=== PATIENT | male | born 1960 | race Caucasian/White ===

== ENCOUNTER 2017-09-03 14:40 | Emergency (ER) | payer SELFPAY ==
--- NOTE | 2017-09-03 14:55 | ED ---
Laceration/Wound HPI - HPI Summary HPI Summary: 57 male presents to ED with complaints of a laceration to right cheek after using a chainsaw that bounced up and caught him in the face while at work just [employer]. Patient denies any changes to vision, trauma to eye or trouble breathing. No other complaints or lacerations elsewhere. Has full range of motion of cheek and face. States the laceration area it self feels somewhat numb. Last tetanus unknown. Is currently in minimal pain. No head trauma, feeling lightheaded or dizzy. No PMHx. No medications. No blood thinners. Was cutting wood however does not think any got into his cheek. Bleeding well controlled at this time. - History of Current Complaint Stated Complaint: LAC Time Seen by Provider: 09/03/17 14:48 Hx Obtained From: Patient Mechanism of Injury: Sharp/Blunt Trauma - chainsaw Onset/Duration: Sudden Onset Aggravating: Movement Alleviating: Compression Timing: Constant Current Severity: None Pain Intensity: 0 Pain Scale Used: 0-10 Numeric PMH/Surg Hx/FS Hx/Imm Hx Infectious Disease History: No Infectious Disease History: Denies: Traveled Outside the [place] in Last 30 Days Review of Systems Constitutional: Negative Cardiovascular: Negative Respiratory: Negative Musculoskeletal: Negative Positive: Other - laceration Neurological: Negative All Other Systems Reviewed And Are Negative: Yes Physical Exam Triage Information Reviewed: Yes Vital Signs On Initial Exam: Initial Vitals Temp Pulse Resp BP Pulse Ox 97 F 92 16 201/137 98 09/03/17 14:42 09/03/17 14:42 09/03/17 14:42 09/03/17 14:42 09/03/17 14:42 elevated bp noted, 157/99, improved at discharge Vital Signs Reviewed: Yes Appearance: Positive: Well-Appearing, No Pain Distress, Well-Nourished Skin: Positive: Warm, Skin Color Reflects Adequate Perfusion, Dry, Other - ~7cm linear however jagged laceration of SQ to right cheek noted, no obvious foreign body or bony involvement noted rest of skin exam normal. some skin missing.. Negative: Cold, Cyanosis @, Pale, Erythema @ Head/Face: Positive: Normal Head/Face Inspection - other than noted above laceration, Other - normal sensation and movement of face, appears facial nerve C7 is intake. Negative: Scalp Eyes: Positive: Normal, EOMI, ROLA, Conjunctiva Clear ENT: Positive: Normal ENT inspection, Hearing grossly normal, Pharynx normal, TMs normal Neck: Positive: Supple, Nontender Respiratory/Lung Sounds: Positive: Clear to Auscultation, Breath Sounds Present. Negative: Rales, Rhonchi, Wheezes Cardiovascular: Positive: Normal, RRR, Pulses are Symmetrical in both Upper and Lower Extremities. Negative: Murmur, Rub Musculoskeletal: Positive: Normal, Strength/ROM Intact Neurological: Positive: Normal, Sensory/Motor Intact, Alert, Oriented to Person Place, Time, NV Bundle Intact Distally Procedures - Laceration/Wound Repair 1 Location: face Description: Linear - jagged Anesthesia: Local, 1.0%, Lido Length, Depth and Shape: ~7cm linear/jagged laceration SQ to right cheek Betadine Prep?: Yes Irrigated w/ Saline (ccs): 500 Laceration/Wound Explored: clean, no foreign body removed Closure: Single Layer Suture Type: Nylon - 6-0 Number of Sutures: 12 Sterile Dressing Applied?: Yes Diagnostics - Vital Signs Vital Signs Temp Pulse Resp BP Pulse Ox 09/03/17 14:42 97 F 92 16 201/137 98 - Laboratory Lab Statement: Any lab studies that have been ordered have been reviewed, and results considered in the medical decision making process. - CT maxillofacial CT Interpretation: No Acute Changes, Positive (See Comments) - 1. Evidence of laceration overlying the right zygoma without underlying fracture or dislocation. 2. Very mild paranasal sinus mucosal disease involving the bilateral maxillary sinuses. CT Interpretation Completed By: Radiologist - and myself Laceration Repair Course/Dx - Course Course Of Treatment: sensation and motor appears to be intact on physical exam. maxillofacial CT obtained and negative for fracture and FB. laceration was thoroughly irrigated and sutured without complication. patient tolerated procedure well. sterile technique was used. patient comfortable throughout stay and was not in any pain, no meds given. tetanus was updated. keep clean and dry. triple antibiotic ointment. follow up pcp. removed in 5--7 days, aware of worsening signs and symptoms to watch out for. no other concerns at this time. educated on worsening symptoms such as infection. - Differential Dx Differental Diagnoses: Avulsion, Laceration - Clinical Impression Provider Diagnoses: Laceration of right cheek without complication Discharge - Discharge Plan Condition: Stable Disposition: HOME Patient Education Materials: Care For Your Stitches (ED), Laceration (ED) Referrals: Abhay Aaron MD [Primary Care Provider] - Additional Instructions: Keep wound clean and dry. Do not get it wet for 24 hours. Keep covered. Apply triple antibiotic ointment. Have sutures removed in 5-7 days. Watch for signs of infection. Ibuprofen for pain and inflammation. You may apply cool compresses to soothe pain and for swelling, however avoid leaking and soaking area, as discussed. Any new or worsening symptoms, such as infection, loss of motor skills/sensation , please seek medical attention promptly. Follow up with PCP.
[2017-09-03] MEDS ORDERED: Lidocaine 2% 10 ML* VIAL INJ ONE (15:29)
[2017-09-03] MEDS ORDERED: Lidocaine 1%* 5 ML VIAL INJ ONE (15:43)
[2017-09-03] MEDS ORDERED: Lidocaine 1% INJ* 10 MG/ML 30 ML SDV ONE (15:43)
[2017-09-03] MEDS ORDERED: Tetan/Diph/Pertus SYR(Tdap)* 0.5 ML SYR(BOOSTRIX) use SYR IM ONE (16:07)
--- NOTE | 2017-09-03 16:18 | RAD ---
indication: Laceration to right cheek after chainsaw "kicked in back intO face" COMPARISON: None A CT scan of the maxillofacial bones was performed without intravenous contrast enhancement. Contiguous axial sections were obtained from the level of the hyoid bone to just above the frontal sinuses. Findings: There is evidence of laceration overlying the right zygoma. Bones: There is no displaced fracture or dislocation. The orbital rim is intact. Bilaterally the nasal bones are intact. The zygomatic arch is intact. The pterygoid plates are intact. Orbits: The globes are round. The optic nerves are symmetric. The extraocular musculature is normal. There is no post septal or intraconal inflammatory change. There is no retrobulbar hematoma. Paranasal Sinuses: There is a very mild degree of paranasal sinus mucosal thickening in the bilateral maxillary sinuses. Visualized brain: The limited views of the brain do not demonstrate any acute abnormality or extra-axial hemorrhage. IMPRESSION: 1. Evidence of laceration overlying the right zygoma without underlying fracture or dislocation. 2. Very mild paranasal sinus mucosal disease involving the bilateral maxillary sinuses.
[2017-09-03 17:44] VITALS: BP 151/98
== END 2017-09-03 17:45 | disposition home or self-care (01) ==
LOC: ED 14:40
DX: S01.411A Laceration without foreign body of right cheek and temporomandibular area, initial encounter (principal); W29.3XXA Contact with powered garden and outdoor hand tools and machinery, initial encounter; Y92.9 Unspecified place or not applicable
CPT/HCPCS: 12014; 70486; 90471; 90715; 96374; 99281

== ENCOUNTER 2017-09-08 15:31 | Emergency (ER) | payer SELFPAY ==
[2017-09-08 18:13] VITALS: BP 144/97
--- NOTE | 2017-09-08 19:23 | ED ---
Skin Complaint - HPI Summary HPI Summary: Patient presents to the ED with request for suture removal to the R side of the face which occurred 5 days ago by a chainsaw kick back. He states he was told to come back in 5 days for a suture check, but d/t the tension placed on the sutures, he may still need a few more days. He has been using neosporin over the wound and has kept it uncovered for the last 3 days. He denies any fevers, sweats or chills and the wound does not have surrounding erythema or worsening swelling for concern for infection. - History of Current Complaint Chief Complaint: EDLacSutureRecheck Time Seen by Provider: 09/08/17 17:16 Stated Complaint: SUTURE REMOVAL Hx Obtained From: Patient Onset/Duration: Started Days Ago Skin Exposure Onset/Duration: Days Ago Timing: Constant Onset Severity: Mild Current Severity: Mild Pain Intensity: 0 Pain Scale Used: 0-10 Numeric Skin Location: Face Character: Swelling, Pain Aggravating Symptom(s): Nothing Alleviating Symptom(s): Nothing Associated Signs & Symptoms: Negative Related History: Trauma PMH/Surg Hx/FS Hx/Imm Hx Previously Healthy: Yes - Immunization History Hx Pertussis Vaccination: No Immunizations Up to Date: Unable to Obtain/Confirm Infectious Disease History: No Infectious Disease History: Denies: Traveled Outside the [place] in Last 30 Days - Social History Occupation: Employed Full-time Lives: With Family Alcohol Use: Weekly Hx Substance Use: Yes Substance Use Type: Reports: Marijuana Hx Tobacco Use: Yes Smoking Status (MU): Light Every Day Tobacco Smoker Review of Systems Constitutional: Negative Negative: Fever, Chills, Fatigue Eyes: Negative Cardiovascular: Negative Respiratory: Negative Positive: no symptoms reported, see HPI Musculoskeletal: Negative Positive: Other - sutures in place to the R cheek Neurological: Negative Psychological: Normal All Other Systems Reviewed And Are Negative: Yes Physical Exam Triage Information Reviewed: Yes Vital Signs On Initial Exam: Initial Vitals Temp Pulse Resp BP Pulse Ox 98.6 F 92 20 158/94 97 09/08/17 15:37 09/08/17 15:37 09/08/17 15:37 09/08/17 15:37 09/08/17 15:37 Vital Signs Reviewed: Yes Appearance: Positive: Well-Appearing, No Pain Distress, Well-Nourished, Signs of Trauma Skin: Positive: Warm, Skin Color Reflects Adequate Perfusion Head/Face: Positive: Normal Head/Face Inspection, Other - sutures to the R side of the cheek Neck: Positive: Supple, Nontender Respiratory/Lung Sounds: Positive: Clear to Auscultation, Breath Sounds Present Cardiovascular: Positive: RRR, Pulses are Symmetrical in both Upper and Lower Extremities Musculoskeletal: Positive: Strength/ROM Intact Neurological: Positive: Speech Normal Psychiatric: Positive: Normal, Affect/Mood Appropriate AVPU Assessment: Alert Diagnostics - Vital Signs Vital Signs Temp Pulse Resp BP Pulse Ox 09/08/17 18:12 98.5 F 76 16 144/97 98 09/08/17 15:37 98.6 F 92 20 158/94 97 - Laboratory Lab Statement: Any lab studies that have been ordered have been reviewed, and results considered in the medical decision making process. Course/Dx - Course Course Of Treatment: Patient evaluated for R sided cheek suture removal. After close evaluation, I think the laceration will more properly heal and close with better effect if sutures will remain for another 24 hours +. I have discussed with the patient the higher risk of scarring. The skin is taught on pulling on the sutures creates a slight opening in the wound. I think tomorrow or the following day will be plenty of time for the laceration to heal well and patient agrees. Premature suture removal could open the wound up. He is encouraged to continue thin layer of neosporin. He states he will come back in Wednesday and I have advised at that time, we will recheck the wound but likely take the sutures out as that will be 6.5 days. - Diagnoses Provider Diagnoses: Suture check Discharge - Discharge Plan Condition: Stable Disposition: HOME Patient Education Materials: Care For Your Stitches (ED) Referrals: Abhay Aaron MD [Primary Care Provider] - Additional Instructions: As discussed, please return on Wednesday morning for suture removal Continue with a think layer for the neosporin twice per day until that time. Images - Images Head: 1 - laceraton measuring 7cm vertical along the R side of the face
== END 2017-09-08 18:12 | disposition home or self-care (01) ==
LOC: ED 15:31
DX: Z48.02 Encounter for removal of sutures (principal)

== ENCOUNTER 2017-09-10 08:14 | Emergency (ER) | payer SELFPAY ==
--- NOTE | 2017-09-10 08:43 | ED ---
ED Suture/Wound Check - HPI Summary HPI Summary: Patient here for suture removal. He experienced right cheek injury with a chain saw on 09/03/2017 and was seen here for wound repair. He reports swelling and bruising at the time however this is improving. Denies fevers chills redness new swelling pain streaking purulent drainage and headache. He reports some mild itching in the area and 1 small spot superiorly that emits scan bloody d/c onto bandage at times. He's been able to eat sleep and drink without difficulty. No further issues to report at this time. - History Of Current Complaint Chief Complaint: EDGeneral Stated Complaint: STITCHES REMOVED Time Seen by Provider: 09/10/17 08:19 Hx Obtained From: Patient Pain Intensity: 0 - Allergies/Home Medications Allergies/Adverse Reactions: Allergies Allergy/AdvReac Type Severity Reaction Status Date / Time No Known Allergies Allergy Verified 09/10/17 08:27 PMH/Surg Hx/FS Hx/Imm Hx Previously Healthy: Yes Endocrine/Hematology History: Denies: Hx Anticoagulant Therapy, Autoimmune Disease Infectious Disease History: No Infectious Disease History: Denies: Traveled Outside the [place] in Last 30 Days - Social History Alcohol Use: Weekly Hx Substance Use: Yes Substance Use Type: Reports: Marijuana Hx Tobacco Use: Yes Smoking Status (MU): Light Every Day Tobacco Smoker Review of Systems Constitutional: Negative ENT: Negative Skin: Other - right cheek laceration Neurological: Negative Psychological: Normal All Other Systems Reviewed And Are Negative: Yes Physical Exam Triage Information Reviewed: Yes Vital Signs On Initial Exam: Initial Vitals Temp Pulse Resp BP Pulse Ox 97.8 F 86 16 147/94 100 09/10/17 08:16 09/10/17 08:16 09/10/17 08:16 09/10/17 08:16 09/10/17 08:16 Vital Signs Reviewed: Yes Appearance: Positive: Well-Appearing, No Pain Distress, Well-Nourished Skin: Positive: Warm, Skin Color Reflects Adequate Perfusion - Linear area over her right cheek caked with scabbingsurrounding tissue reveals healing ecchymosis, residual edema. No erythema, no fever to touch, no drainage. Sutures intact. Head/Face: Positive: Normal Head/Face Inspection Eyes: Positive: Normal, EOMI, Conjunctiva Clear ENT: Positive: Hearing grossly normal, Pharynx normal Musculoskeletal: Positive: Normal, Strength/ROM Intact Neurological: Positive: Normal, Alert, Oriented to Person Place, Time, CN Intact II-III Psychiatric: Positive: Normal Diagnostics - Vital Signs Vital Signs Temp Pulse Resp BP Pulse Ox 09/10/17 08:16 97.8 F 86 16 147/94 100 - Laboratory Lab Statement: Any lab studies that have been ordered have been reviewed, and results considered in the medical decision making process. Course/Dx - Course Course Of Treatment: Patient's wound appears well approximated in most areas however there are 2 areas where there is gapping w/o approximation. It does not appear to be infected. Wound was debrided of scabbing and 1 suture was removed as it was not closing tissue - appears to have ruptured and imbedded in 1 side of wound only. 2 steristrips were placed in areas of poor approximation and triple anbx ointment applied to remaining wound. Patient tolerated well. Follow up with wound care as directed. Return to ED if danger signs or symptoms present. - Clinical Impression Provider Diagnoses: Visit for suture removal, Encounter for wound re-check Discharge - Discharge Plan Condition: Stable Disposition: HOME Patient Education Materials: Care For Your Stitches (ED), Wound Healing and Your Diet (ED), Steristrips (ED) Forms: *Work Release Referrals: Ned Manzanares MD [Medical Doctor] - Additional Instructions: Your wound appears to be healing well however there are a few areas that have not yet closed. These areas have steristrips in place as of today - keep dry and do not remove - they will fall off on their own in 5 days. Continue to gently wash rest of wound with soap and water daily or ue Qtip to gently clean wound, debride scabbing, etc and apply triple antibiotic ointment until completely healed (avoid area with steristrips). Follow-up with plastic surgery Wednesday or Wednesday for suture removal and wound assessment. You may continue ice and Aleve in the meantime for swelling, pain. *If you developed fevers, chills, redness, swelling, streaking, facial pain, neck pain or stiffness, return to the ED.
[2017-09-10 09:44] VITALS: BP 148/94
== END 2017-09-10 09:43 | disposition home or self-care (01) ==
LOC: ED 08:14
DX: S01.411D Laceration without foreign body of right cheek and temporomandibular area, subsequent encounter (principal); W29.3XXD Contact with powered garden and outdoor hand tools and machinery, subsequent encounter; F17.200 Nicotine dependence, unspecified, uncomplicated
CPT/HCPCS: 99282